=== PATIENT | female | born 1935 | race Caucasian/White ===

== ENCOUNTER 2019-08-26 03:02 | Observation (INO) | payer MEDICARE, BC ==
[2019-08-26] MEDS ORDERED: oxyCODONE/Acetamin 5/325 MG* TAB PO ONE (04:06)
--- NOTE | 2019-08-26 04:12 | ED ---
Adult Trauma - HPI Summary HPI Summary: Pt is an 83 y/o F presenting to the ED brought in by EMS for a fall. She states she was reaching down off of her mattress to get her slippers to go to the bathroom, when she just slid off of the bed and was unable to stop. She landed on her bottom. She notes pain in her low back and heightened anxiety. Denies hip pain. - History of Current Complaint Chief Complaint: EDFall Stated Complaint: PAIN AFTER FALL PER EMS Time Seen by Provider: 08/26/19 03:53 Hx Obtained From: Patient Mechanism of Injury: Fall Ambulatory at the Scene: No Onset/Duration: Started Hours Ago, Still Present Onset of Pain: Immediate Onset Severity: Severe Current Severity: Severe Pain Intensity: 9 Pain Scale Used: 0-10 Numeric Location: Back Aggravating Factor(s): Nothing Alleviating Factor(s): Nothing Associated Signs & Symptoms: Positive: Negative - Allergy/Home Medications Allergies/Adverse Reactions: Allergies Allergy/AdvReac Type Severity Reaction Status Date / Time clarithromycin [From Biaxin] Allergy Unknown Verified 08/26/19 03:25 Reaction Details PMH/Surg Hx/FS Hx/Imm Hx Previously Healthy: Yes Cardiovascular History: Reports: Hx Hypertension Denies: Hx Myocardial Infarction Respiratory History: Denies: Hx Asthma, Hx Chronic Obstructive Pulmonary Disease (COPD) Musculoskeletal History: Reports: Hx Arthritis, Hx Rheumatoid Arthritis, Hx Osteoporosis Sensory History: Reports: Hx Vision Problem Opthamlomology History: Reports: Hx Vision Problem Infectious Disease History: No Infectious Disease History: Denies: Traveled Outside the [place] in Last 30 Days - Family History Known Family History: Negative: Diabetes - Social History Alcohol Use: Rare Hx Substance Use: No Substance Use Type: Reports: None Hx Tobacco Use: No Smoking Status (MU): Never Smoked Tobacco Review of Systems Positive: Myalgia. Negative: Arthralgia Positive: Anxious All Other Systems Reviewed And Are Negative: Yes Physical Exam - Summary Physical Exam Summary: Appearance: Elderly, frail-appearing woman lying on the stretcher in [facility], does not appear to be in pain. Skin: Warm, dry, no obvious rash Eyes: sclera anicteric, no conjunctival pallor ENT: mucous membranes moist, pharynx appears normal. No external signs of head trauma. Neck: Supple, nontender Respiratory: Clear to auscultation, no signs of respiratory distress Cardiovascular: Normal S1, S2. No murmurs. Normal distal pulses in tibial and radial bilaterally. Abdomen: Mild general abd tenderness without peritoneal signs, normal active bowel sounds present Musculoskeletal: Stigmata of arthritis in both hands. Tenderness diffusely in lower lumbar back without coccygeal tenderness. Appears to be moving arms & legs w/o significant difficulty. Neurological: A&Ox3, awake and alert, mentation is normal, speech is fluent and appropriate Psychiatric: affect is normal, does not appear anxious or depressed Triage Information Reviewed: Yes Vital Signs On Initial Exam: Initial Vitals Temp Pulse Resp BP Pulse Ox 98.3 F 74 16 194/91 100 08/26/19 03:10 08/26/19 03:10 08/26/19 03:10 08/26/19 03:10 08/26/19 03:10 Vital Signs Reviewed: Yes Procedures - Sedation Patient Received Moderate/Deep Sedation with Procedure: No Diagnostics - Vital Signs Vital Signs Temp Pulse Resp BP Pulse Ox 08/26/19 03:14 73 194/91 99 08/26/19 03:10 98.3 F 74 16 194/91 100 - Laboratory Result Diagrams: 08/26/19 04:41 08/26/19 04:41 Lab Statement: Any lab studies that have been ordered have been reviewed, and results considered in the medical decision making process. - Radiology L-spine XR Radiology Interpretation Completed By: ED Physician Summary of Radiographic Findings: No acute fracture. Pending official radiology report. Pelvis XR Radiology Interpretation Completed By: ED Physician Summary of Radiographic Findings: No acute fracture. Pending official radiology report. - CT Pelvis CT CT Interpretation Completed By: Radiologist Summary of CT Findings: 1. Old fractures of the right superior and inferior pubic rami and the distal sacrum or sacrococcygeal junction. 2. 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 There is facet arthropathy at L4-L5 with grade 1 anterolisthesis[address] 3[address] Otherwise negative [address] pelvis. No acute fracture. ED physician has reviewed this report. L-spine CT CT Interpretation Completed By: Radiologist Summary of CT Findings: 1. Mild acute compression of L1 with no significant retropulsion. There is slight surrounding induration. 2. 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 There is facet arthropathy at L4-L5 with grade 1 anterolisthesis with moderate secondary spinal stenosis and borderline left neural foraminal stenosis. 3. Early facet arthropathy at several levels with no additional significant spinal or foraminal stenosis. ED physician has reviewed this report. Adult Trauma Course/Dx - Course Course Of Treatment: 83 y[facility] a fall from her mattress to the ground when she was trying to pick pack worker her slipper. Reports back pain and anxiety. Denies hip pain. On exam, pt is an elderly, frail-appearing female lying on the stretcher in no acute distress. She has mild generalized abd pain without peritoneal signs, stigmata of arthritis in her hands, tenderness diffusely across the lower lumbar back without coccygeal tenderness, and she's moving her extremities without significant difficulty. L- spine and pelvis XRs show no acute fracture, pending official radiology report. L-spine CT shows: 1. Mild acute compression of L1 with no significant retropulsion. There is slight surrounding induration. 2. 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 There is facet arthropathy at L4-L5 with grade 1 anterolisthesis with moderate secondary spinal stenosis and borderline left neural foraminal stenosis. 3. Early facet arthropathy at several levels with no additional significant spinal or foraminal stenosis. Pelvis CT shows: 1. Old fractures of the right superior and inferior pubic rami and the distal sacrum or sacrococcygeal junction. 2. 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 There is facet arthropathy at L4-L5 with grade 1 anterolisthesis. 3. Otherwise negative CT pelvis. No acute fracture. Dx of L1 compression fracture. Signout to Dr. Christianson pending hospitalist consult. - Diagnoses Provider Diagnoses: Compression fracture of L1 lumbar vertebra Discharge ED - Sign-Out/Discharge Documenting (check all that apply): Sign-Out Patient Signing out patient TO: Leonid Christianson - Discharge Plan Disposition: ADMITTED TO [facility] - Billing Disposition and Condition Disposition: Admitted to [facility] - Attestation Statements Document Initiated by Scribe: Yes Documenting Scribe: Yenny Mauricio Provider For Whom Leroy is Documenting (Include Credential): Brent Melgar MD. Scribe Attestation: Yenny Conley, [email or web address] for Brent Melgar MD. on 08/26/19 at 2046. Scribe Documentation Reviewed: Yes Provider Attestation: The documentation as recorded by the scribe, Yenny Mauricio accurately reflects the service I personally performed and the decisions made by me, Brent Melgar MD. Status of Scribe Document: Viewed
[2019-08-26 04:51] LABS: ABS Lymphocytes 0.7 10^3/ul (1.0-4.8); ABS Monocytes 0.3 10^3/ul (0-0.8); Eosinophil % 0.1 %; Hematocrit 33 % (35-47); Hemoglobin 11.6 g/dL (12.0-16.0); Lymphocyte % 9.2 %; Mean Corpuscular HGB Conc 35 g/dL (31-36); Mean Corpuscular Hemoglobin 32 pg (27-31); Mean Corpuscular Volume 91 fL (80-97); Mean Platelet Volume 7.2 fL (7.4-10.4); Platelet Count 156 10^3/uL (150-450); Red Blood Count 3.66 10^6 /uL (3.70-4.87); Red Cell Distribution Width 14 % (10-15); White Blood Count 8.1 10^3/uL (3.5-10.8)
[2019-08-26 05:11] LABS: Urine Appearance Clear; Urine Bilirubin Negative (Negative); Urine Blood Negative (Negative); Urine Color Straw; Urine Glucose 1+(50 mg/dL) (Negative); Urine Ketones Negative (Negative); Urine Nitrite Negative (Negative); Urine Protein Negative (Negative); Urine Specific Gravity 1.009 (1.010-1.030); Urine Urobilinogen Negative (Negative)
[2019-08-26 05:22] LABS: Albumin/Globulin Ratio 1.4 (1-3); BUN/Creatinine Ratio 19.7 (8-20); Calcium 9.1 mg/dL (8.6-10.3); EGFR African American 87.9 (>60); EGFR Non-African American 72.7 (>60); Globulin 2.8 g/dL (2-4); Potassium 3.7 mmol/L (3.5-5.0); Total Bilirubin 0.5 mg/dL (0.2-1.0); Total Protein 6.8 g/dL (6.4-8.9)
[2019-08-26] MEDS ORDERED: Ondansetron INJ* 2 MG/ML VIAL IV ONE (06:00)
[2019-08-26] MEDS ORDERED: oxyCODONE TAB* 5 MG TAB PO ONE (06:07)
[2019-08-26] MEDS: Morphine INJ* 2 MG/ML 1 ML SYRINGE (TWO MG - NEW SYRINGE VERSION) IV PRN ×5 (08:24→19:37)
[2019-08-26] MEDS: Polyethylene Glycol 3350* 17 GM PACKET PO SCH ×2 (09:36→21:40)
--- NOTE | 2019-08-26 10:38 | HP ---
CC: Dr. Perez Barrios in [place], [place], phone number is [phone] HISTORY AND PHYSICAL: DATE OF ADMISSION: 08/26/19 TIME OF EVALUATION: 7:03 a.m. PRIMARY CARE PROVIDER: Dr. Perez Barrios CHIEF COMPLAINT: "I fell." HISTORY OF PRESENT ILLNESS: Mrs. Pacheco is an 83-year-old female with a past medical history of rhe umatoid arthritis, hypertension, osteoporosis, who is visiting her family from [place]. The pat ient states that she is sleeping in a pull out couch and it can be a little "tricky" to get up. In t he middle of the night, she needed to go to the bathroom, so she sat up on the edge of the couch and she was trying to find her slippers with her foot, but she slipped from the bed and landed on her bot jesse. She immediately felt severe low back pain and she was brought to the emergency room for further evaluation. She states that prior to this episode, she was feeling in her usual state of health. There is no jesse st pain, palpitations, dizziness, lightheadedness, loss of consciousness, nausea, vomiting, diarrhea. She denies loss of sensation, tingling, or localized weakness. In the emergency room, the patient's workup revealed an L1 compression fracture and in the emergency room, she attempted ambulation with a walker, but was not successful due to severe pain reason why [facility] hospitalist service was called for admission. PAST MEDICAL HISTORY: 1. Rheumatoid arthritis. 2. Hypertension. 3. Osteoporosis. MEDICATION LIST: Not available at this time. Her son will pick it up and bring it to the hospital. FAMILY HISTORY: There is a family history of diabetes. SOCIAL HISTORY: Sporadic alcohol use. No history of tobacco or drug use. The patient lives in [place], [place] and is just visiting. Surrogate decision maker is her son, Margarito Pacheco, phone numb er is [phone]. REVIEW OF SYSTEMS: A 14-point review of systems was performed and all the pertinent negative and pos itive findings are in the HPI. PHYSICAL EXAMINATION GENERAL: The patient is an elderly frail lady, lying in the ED stretcher, in no acute distress, but appears to be very uncomfortable. VITAL SIGNS: Temperature 98.3, heart rate 75, respiratory rate 16, oxygen saturation 96% on room air , blood pressure is 128/61. HEENT: Pupils are equal. Moist mucous membranes. CHEST: Breath sounds bilaterally with no added sounds. CVS: Normal S1, S2. Regular rate and rhythm. ABDOMEN: Soft, nontender, nondistended. Bowel sounds are present. EXTREMITIES: No edema. The patient has rheumatoid arthritis deformities on her hands, but no active inflammation. The patient has no clear stepdown deformity on inspection of her back, but she has te nderness diffusely in her lower back. She can move both lower extremities with power 4/5. Sensation is intact. Her face is symmetric. Speech is clear, although history is a little difficult to obtai n due to her pain and the fact that she received opioids prior to my interview. DIAGNOSTIC STUDIES/LAB DATA: The patient had a CBC that showed WBC of 8.1, hemoglobin of 11.6, philippe tocrit 33, platelets 156 with 87% neutrophils. Chemistry showed a sodium 147, potassium 3.7, chlorid e of 103, bicarb of 27, BUN of 15, creatinine of 0.76, glucose of 157, calcium is 9.1. LFTs are norm al. Urinalysis showed 1+ glucose. Lumbar spine x-ray shows [id number] acute appearing compression fracture of the superior endpla te of the L1 vertebral body with a grade 1 anterior spondylolisthesis at the L4-L5 level. Pelvis x-ray was a limited study, but showed osteopenia and no acute osseous injury. The patient had a CT of the lumbar spine without contrast that showed mild acute compression of L1 wi th no significant retropulsion. There is slight surrounding induration. Bilateral spondylolisthesis of L5 with slight anterolisthesis. There is facet arthropathy at L4-L5 with grade 1 anterolisthesis with moderate secondary spinal stenosis and borderline left neural foraminal stenosis. Early facet arthropathy at several levels with no additional significant spinal or foraminal stenosis. CT of the pelvis showed old fractures of the right superior and inferior pubic rami and distal sacrum or sacrococcygeal junction. No acute fracture. ASSESSMENT AND PLAN: Mrs. Pacheco is an 83-year-old female with a past medical history of hypertensi on, rheumatoid arthritis, osteoporosis, who presented to the emergency room with complaints of low ba ck pain after sustaining a mechanical fall, found to have an L1 compression fracture. 1. L1 compression fracture. CT shows this is a mild fracture with no retropulsion. The patient's n eurological exam is normal. The major issues at this time is pain control. The patient will be admitted as observation to the medical floor and we will do a thoracic spine as w ell as cervical spine x-ray. The patient will be on bedrest for now and she will be seen in consulta tion by Neurosurgery. We will continue pain management and I suspect she will likely need a TLSO bra ce. 2. Rheumatoid arthritis. The patient states that she is on Humira and she was actually due for inje ction today. Her son will bring her medication list, so we can continue her treatment. 3. Hypertension. The patient was hypertensive in the setting of acute pain, but after receiving alison n medication, her blood pressure is already trending down. We will continue to monitor. 4. DVT prophylaxis. The patient has a score of 3 on the DVT prophylaxis Risk Assessment Guide and s he will be started on subcutaneous heparin. 5. Code status is full. We will also obtain records from her primary care provider, Dr. Perez Barrios. TIME SPENT: Approxi mately 50 minutes was spent with the patient and son's interview, medical records review, physical ex amination to complete this admission, more than half of this time was spent [id number] with the pat ient and coordination of care. [id number]/[facility] #: [id number]
[2019-08-26] MEDS ORDERED: Polyethyl Glycol/Propylene Gly OPHTH.SOLN BOTH EYES PRN (11:58)
[2019-08-26] MEDS: oxyCODONE TAB* 5 MG TAB PO PRN ×2 (12:02→21:44)
[2019-08-26] MEDS: CMC:Saliva Substitute (NF) 1 SPRAY BTL MT PRN (12:03)
[2019-08-26] MEDS: PROCHLORPERAZINE INJ 5 MG/ML 2 ML VIAL IV PRN (14:31)
[2019-08-26] MEDS: Heparin VIAL(*) 5000 UNITS/ML VIAL (FIVE THOUSAND) SUBCUT SCH ×2 (14:41→21:39)
[2019-08-26] MEDS: Escitalopram * 5 MG TAB PO SCH (16:14)
[2019-08-26] MEDS: clonazePAM TAB(*) 0.5 MG PO PRN (16:14)
--- NOTE | 2019-08-26 19:27 | CONS ---
CONSULTATION REPORT: DATE OF CONSULT: 08/26/19 HISTORY OF PRESENT ILLNESS: The patient is a very pleasant 83-year-old female with past medical history of rheumatoid arthritis, hypertension, osteoporosis, who was visiting her family from [place]. The patient was reported to have sustained a fall when she was trying to get out of bed. The patient reports it was a pull- out sofa, and when she was trying to find her slippers, she fell on her back. She denies any loss of consciousness. Denies any neck pain. Because of back pain, the patient was brought to the emergency room, and a CT scan of the lumbar spine revealed a superior end-plate fracture of L1. Requested to see the patient by the hospitalist team, who kindly admitted the patient for pain control. The patient at this point denies any weakness, numbness, or tingling of her extremities. She denies any neck pain. She was able to ambulate after the accident. She denies any urinary or GI incontinence. Her perineal sensation is intact. The patient lives in her apartment in a town close to [place]. She was visiting her son who lives here in [place]. The patient was seen on the regular floor. The patient's son is at the bedside. PAST MEDICAL HISTORY: Rheumatoid arthritis, hypertension, osteoporosis. FAMILY HISTORY: Diabetes. SOCIAL HISTORY: Tobacco negative. Alcohol occasionally. Recreational drug use negative. The patient lives in [place], [place]. Surrogate decision maker is her son Margarito Pacheco. PHYSICAL EXAM: On physical examination, the patient is not in acute distress. She is awake, alert, oriented x3. Her pupils are equal and reactive. Cranial nerves II through XII are grossly intact. Motor 4-5/5 in all extremities. No pronator drift. Sensory grossly intact to light touch. Deep tendon reflexes + 1 bilaterally. No clonus, no Babinski. Antunez's negative. The patient has a brace on. She is nontender to palpation of the cervical spine. She has free range of motion of the cervical spine. The patient does have deviation of the fingers consistent with a history of rheumatoid arthritis. DIAGNOSTIC STUDIES/LAB DATA: The patient had an x-ray of her cervical spine that did not reveal any fractures or subluxation. The patient had an x-ray of the thoracic spine that did not reveal any fractures. The patient had a CT scan of her lumbar spine that revealed a superior end-plate fracture of L1 without significant canal compromise, there might be suspicion of mild superior end-plate posterior displacement, although in the axial views it is difficult to confirm. The patient also has a grade 1 spondylolisthesis at L4-5 with vacuum phenomenon and what seems to be pars defect at L5 bilaterally. ASSESSMENT: The patient is a very pleasant 83-year-old female with past medical history of hypertension, rheumatoid arthritis, osteoporosis, who presented to the emergency room with complaints of low back pain after sustaining a mechanical fall and was diagnosed with an L1 superior end-plate fracture. PLAN: The patient at this point is doing quite well. We recommend conservative treatment with brace provided that the patient can tolerate the upright position and upright x-rays did not reveal any significant kyphosis or spinal malalignment. We discussed about different treatment options including surgical intervention, kyphoplasty, and conservative treatment with brace. I think if the upright x-rays did not reveal any new findings, conservative treatment may be the best option for now. The patient should follow up with her primary physician regarding treatment of osteoporosis. Also recommend to obtain a CT scan of the cervical spine to exclude the remote possibility of an occult fracture. Thank you for allowing us to participate in the care of this patient. Please do not hesitate to contact our office in case if you have any further questions or concerns regarding the care of this patient. [id number]/[facility] #: [id number] YASMINE
[2019-08-26] MEDS: Losartan TAB* 25 MG PO SCH (21:39)
[2019-08-26] MEDS: Folic Acid TAB* 1 MG PO SCH (21:39)
[2019-08-27] MEDS: oxyCODONE TAB* 5 MG TAB PO PRN ×4 (02:34→20:26)
[2019-08-27] MEDS: Morphine INJ* 2 MG/ML 1 ML SYRINGE (TWO MG - NEW SYRINGE VERSION) IV PRN (05:40)
[2019-08-27] MEDS: Heparin VIAL(*) 5000 UNITS/ML VIAL (FIVE THOUSAND) SUBCUT SCH ×3 (05:41→20:25)
[2019-08-27] MEDS: Losartan TAB* 25 MG PO SCH (08:53)
[2019-08-27] MEDS: PILOCARPINE 5 MG PO SCH (08:53)
[2019-08-27] MEDS: Polyethylene Glycol 3350* 17 GM PACKET PO SCH ×2 (08:53→20:25)
[2019-08-27] MEDS: Escitalopram * 5 MG TAB PO SCH (08:53)
[2019-08-27] MEDS: clonazePAM TAB(*) 0.5 MG PO PRN ×2 (08:54→20:26)
[2019-08-27] MEDS: Multivitamins/Minerals TAB PO SCH (08:54)
[2019-08-27] MEDS: Ascorbic Acid TAB* 500 MG PO SCH (08:54)
[2019-08-27] MEDS: Folic Acid TAB* 1 MG PO SCH ×2 (08:54→20:26)
[2019-08-27] MEDS: Acetaminophen TAB* 325 MG PO PRN ×2 (08:54→14:31)
[2019-08-27] MEDS: amLODIPine TAB* 5 MG PO SCH (08:54)
[2019-08-27] MEDS: CMCS:Oral Rinse (Biotene)(NF) 237 ML or 473 ML ORAL RINSE BTL MT SCH (08:57)
[2019-08-27] MEDS ORDERED: Losartan TAB* 25 MG PO SCH (09:00)
[2019-08-27] MEDS: PROCHLORPERAZINE INJ 5 MG/ML 2 ML VIAL IV PRN (09:03)
[2019-08-27] MEDS: Red Yeast Rice [Red Yeast Rice] 1,200 MG PO SCH ×2 (14:21→23:47)
--- NOTE | 2019-08-27 18:04 | PN ---
Subjective Date of Service: 08/27/19 Interval History: HOSPITALIST PROGRESS NOTE Patient seen and examined at bedside. Care reviewed and d/w Vicky Goodman RN. She feels improved today. Initial TLSO brace was too large, but now she has an appropriate sized one and feels much more comfortable. Pain is better controlled and she was able to ambulate to the bathroom. Had some urinary retention after IV Morphine yesterday, but now voiding without issues. Family History: Unchanged from Admission Social History: Unchanged from Admission Past Medical History: Unchanged from Admission Objective Active Medications: Acetaminophen (Tylenol Tab*) 650 mg PO Q4H PRN PRN Reason: MILD PAIN or TEMP > 100.4 Last Admin: 08/27/19 14:31 Dose: 650 mg Amlodipine Besylate (Norvasc Tab*) 5 mg PO DAILY [facility] Last Admin: 08/27/19 08:54 Dose: 5 mg Ascorbic Acid (Vitamin C Tab*) 1,000 mg PO DAILY [facility] Last Admin: 08/27/19 08:54 Dose: 1,000 mg Clonazepam (Klonopin Tab(*)) 0.5 mg PO BID PRN PRN Reason: ANXIETY Last Admin: 08/27/19 08:54 Dose: 0.5 mg Escitalopram Oxalate (Lexapro *) 5 mg PO DAILY [facility]; Protocol Last Admin: 08/27/19 08:53 Dose: 5 mg Folic Acid (Folvite Tab*) 1 mg PO BID [facility] Last Admin: 08/27/19 08:54 Dose: 1 mg Heparin Sodium (Porcine) (Heparin Vial(*)) 5,000 units SUBCUT Q8HR [facility] Last Admin: 08/27/19 14:32 Dose: 5,000 units Losartan Potassium (Cozaar Tab*) 100 mg PO DAILY [facility] Last Admin: 08/27/19 08:53 Dose: 100 mg Morphine Sulfate (Morphine Inj (Syringe))*) 1 mg IV Q1H PRN PRN Reason: SEVERE PAIN Last Admin: 08/27/19 05:40 Dose: 1 mg Multi-Ingredient Mouthwash/Gargle (Biotene Dry Mouth Oral Rinse(Nf)) 15 ml MT DAILY [facility] Last Admin: 08/27/19 08:57 Dose: 15 ml Multivitamins/Minerals (Theragran/Minerals Tab*) 1 tab PO DAILY [facility] Last Admin: 08/27/19 08:54 Dose: 1 tab Red Yeast Rice [Red (Yeast Rice] 1,200 Mg) 1,200 mg PO BID [facility] Last Admin: 08/27/19 14:21 Dose: Not Given Oxycodone HCl (Roxycodone Tab*) 5 mg PO Q4H PRN PRN Reason: PAIN - MODERATE Last Admin: 08/27/19 14:31 Dose: 5 mg Pilocarpine HCl (Pilocarpine Tab (Nf)) 10 mg PO DAILY [facility]; Protocol Last Admin: 08/27/19 08:53 Dose: 10 mg Polyethyl Glycol/Propylene Glycol (Lubricant Eye Drops) 1 drop BOTH EYES DAILY PRN PRN Reason: DRY EYE Polyethylene Glycol/Electrolytes (Miralax*) 17 gm PO 0800,2100 [facility] Last Admin: 08/27/19 08:53 Dose: 17 gm Prochlorperazine Edisylate (Compazine Inj*) 5 mg IV Q6H PRN PRN Reason: NAUSEA/VOMITING Last Admin: 08/27/19 09:03 Dose: 5 mg Saliva Substitute (Biotene Moisturizing Mouth (Nf)) 1 spray MT Q3H PRN; Protocol PRN Reason: dry mouth Last Admin: 08/26/19 12:03 Dose: 1 spray Vital Signs - 8 hr 08/27/19 08/27/19 08/27/19 11:15 11:20 14:31 Temperature 97.6 F Pulse Rate 84 Respiratory 13 13 15 Rate Blood Pressure 162/62 (mmHg) O2 Sat by Pulse 100 Oximetry 08/27/19 08/27/19 15:50 16:32 Temperature 98.1 F Pulse Rate 72 Respiratory 20 15 Rate Blood Pressure 165/75 (mmHg) O2 Sat by Pulse 98 Oximetry Oxygen Devices in Use Now: None Appearance: Pleasant elderly lady sitting up in bed in NAD Eyes: No Scleral Icterus Ears/Nose/Mouth/Throat: Mucous Membranes Moist Neck: Trachea Midline Respiratory: Symmetrical Chest Expansion and Respiratory Effort, Clear to Auscultation Cardiovascular: RRR - Normal S1 and S2 Abdominal: NL Sounds; No Tenderness; No Distention Neurological: Alert and Oriented x 3, NL Muscle Strength and Tone, - - Sensation intact Result Diagrams: 08/26/19 04:41 08/26/19 04:41 Assess/Plan/Problems-Billing Assessment: Mrs Pacheco is an 83yo F with PMH of Rheumatoid arthritis, osteoporosis, HTN, who presented to ED with c/o back after sustaining a fall at home, found to have L1 compression fracture. - Patient Problems (1) Compression fracture of L1 lumbar vertebra Comment: - Neurosurgery input much appreciated. - Will continue pain management, TLSO brace when out of bed, and PT. - No indication for surgical procedures at this time. (2) HTN (hypertension) Comment: - Continue Amlodipine and Losartan. (3) DVT prophylaxis Comment: - SQ heparin. (4) Full code status Status and Disposition: OBV.
--- NOTE | 2019-08-27 18:22 | PN ---
Progress Note - Progress Note Date of Service: 08/27/19 Note: No events ON. Tolerates brace well. Pain is significantly better. Ambulates to bathroom, Voids, Tolerates Po well. AAOx3 REGINA, CN II-XII grossly intact Motor 4-5/5 all extremities Sensory grossly intact to light touch XR reveals mild kyphosis (17') Discussed in extend with patient and her son (over the phone) regarding imaging findings and possible options including surgical intervention. At this point we agreed to continue with conservative treatment with bracing. Patient and her son understand the possibility of progression of kyphosis, increased pain and possible neurological deficits. DC planning after eval by PT. Will need follow up with serial imaging. Patient's son would like to transfer the patient to [place]. Follow up with spine surgeon close to her residence in 2 weeks. Will be available if needed. Venus Wallace MD
[2019-08-27] MEDS ORDERED: hydrALAZINE IV* 20 MG/ML VIAL IV SLOW PU PRN (20:07)
[2019-08-28] MEDS: oxyCODONE TAB* 5 MG TAB PO PRN ×3 (01:10→14:06)
[2019-08-28] MEDS: Acetaminophen TAB* 325 MG PO PRN (01:10)
[2019-08-28] MEDS: Heparin VIAL(*) 5000 UNITS/ML VIAL (FIVE THOUSAND) SUBCUT SCH ×2 (06:26→14:07)
[2019-08-28] MEDS: Morphine INJ* 2 MG/ML 1 ML SYRINGE (TWO MG - NEW SYRINGE VERSION) IV PRN (07:39)
[2019-08-28] MEDS: CMC:Saliva Substitute (NF) 1 SPRAY BTL MT PRN (07:44)
[2019-08-28] MEDS: Multivitamins/Minerals TAB PO SCH (07:49)
[2019-08-28] MEDS: Folic Acid TAB* 1 MG PO SCH (07:49)
[2019-08-28] MEDS: PILOCARPINE 5 MG PO SCH (07:49)
[2019-08-28] MEDS: Losartan TAB* 25 MG PO SCH (07:49)
[2019-08-28] MEDS: Polyethylene Glycol 3350* 17 GM PACKET PO SCH (07:49)
[2019-08-28] MEDS: Escitalopram * 5 MG TAB PO SCH (07:49)
[2019-08-28] MEDS: Ascorbic Acid TAB* 500 MG PO SCH (07:49)
[2019-08-28] MEDS: CMCS:Oral Rinse (Biotene)(NF) 237 ML or 473 ML ORAL RINSE BTL MT SCH (07:50)
[2019-08-28] MEDS: Red Yeast Rice [Red Yeast Rice] 1,200 MG PO SCH (07:50)
[2019-08-28] MEDS: amLODIPine TAB* 5 MG PO SCH (07:50)
[2019-08-28] MEDS: clonazePAM TAB(*) 0.5 MG PO PRN (08:00)
[2019-08-28 13:17] VITALS: BP 154/58
--- NOTE | 2019-08-29 10:54 | DS ---
CC: Dr. Perez Barrios; Dr. Wallace * DISCHARGE SUMMARY: DATE OF ADMISSION: 08/26/19 DATE OF DISCHARGE: 08/28/19 PRIMARY CARE PROVIDER: Dr. Perez Barrios in [place], [place], phone number is [phone]. DISCHARGE DIAGNOSIS: L1 compression fracture. SECONDARY DIAGNOSES: 1. Rheumatoid arthritis. 2. Osteoporosis. 3. Hypertension. MEDICATION LIST: 1. Acetaminophen 650 mg p.o. q.4 hours p.r.n. mild pain or fever. 2. Humira 20 mg subcutaneously weekly. 3. Amlodipine 5 mg p.o. daily. 4. Vitamin C 1000 mg p.o. daily. 5. Cequa 1 drop to both eyes b.i.d. 6. Clonazepam 0.5 mg to 1 mg p.o. b.i.d. as needed for anxiety. 7. Clotrimazole 10 mg p.o. daily as needed for thrush. 8. Diclofenac sodium 3% topical daily as needed for pain. 9. Lomotil 1 to 2 tablets p.o. daily. 10. Lexapro 5 mg p.o. daily. 11. Folic acid 1 mg p.o. b.i.d. 12. Glucosamine 1000 mg p.o. daily. 13. Inveltys 1 drop to right eye b.i.d. 14. Losartan 100 mg p.o. daily. 15. Methotrexate 2.5 mg p.o. weekly. 16. Multivitamin 1 tablet p.o. daily. 17. Biotene Dry Mouth rinse daily. 18. Pilocarpine 10 mg p.o. daily. 19. Artificial tears 1 drop to both eyes daily as needed for dry eye. 20. Red yeast rice 1200 mg p.o. b.i.d. 21. Tramadol 50 mg p.o. b.i.d. as needed for moderate pain. 22. Turmeric 500 mg p.o. daily. New medication: 1. Oxycodone 5 mg p.o. q.6 hours p.r.n. [id number] pain, MDD 4 tablets , dispensed 10 tablets, no refills. HOSPITAL COURSE: Ms. Pacheco is an 83-year-old female with a past medical history as stated above that presented to the emergency room after sustaining a fall from bed. She is visiting from [place] and she was sleeping in a pull out couch. She states she sat up, trying to go to the bathroom, and while searching for her slippers with her feet, she slipped down and landed on her buttocks and immediately experienced severe back pain. For more details about her presentation, I refer you to her history and physical. In the emergency room, the patient had a lumbar spine x-ray that showed mild to moderate acute appearing compression fracture on the superior endplate of the L1 vertebral body. CT of the lumbar spine without contrast showed mild acute compression of L1 with no significant retropulsion. The patient still had significant back pain in the emergency room and the hospitalist service was contacted for admission and further management. The patient received morphine and oxycodone with improvement of her pain. She was seen in consultation by Neurosurgery (Dr. Wallace). His impression was the patient had an L1 superior endplate fracture secondary to mechanical fall. His recommendation was for conservative treatment with a brace provided that the patient can tolerate the upright position and upright x-rays did not reveal any significant kyphosis or spinal malalignment. Arrangements were made and the patient had a TLSO brace placed. To complete her workup, the patient also had cervical spine x-ray that showed osteopenia, osteoarthritis, but no acute fracture; a thoracic spine x-ray with similar findings and the described acute fracture and a CT of the cervical spine with no acute cervical spine fracture. An upright thoracolumbar spine x-ray with her brace on showed 25% to 50% compression of L1 with progression since her initial x-ray from 08/26/19. At that point, she was seen by Dr. Wallace again, and he had a lengthy discussion with the patient and her son regarding her x-ray findings and possible therapeutic options including surgical intervention. After discussing risks, benefits, and alternatives, decision was made to continue conservative treatment with bracing and pain management. The patient and her son are aware of the possibility of progression of kyphosis, increased pain, and possible neurological deficits. His recommendation was for neurosurgical followup with imaging in 2 weeks and that can be done with him if the patient stays in [place] or she can be referred to see a neurosurgeon in [place] when she returns home. The patient did well with physical therapy. She was able to ambulate independently and she required a rolling walker but was able to ambulate 150 feet. She also did well with stairs and able to ascend and descend for stairs with one way up, so it was felt that she did not have any skilled PT services at this point. Initially, the patient had some urinary retention with morphine and required straight cath, but this is also resolved. The patient is medically stable to be discharged home today. PHYSICAL EXAMINATION: Vital Signs: Temperature 98.2, heart rate 75, respiratory rate is 16, oxygen saturation is 100% on room air, blood pressure is 154/58. General: The patient is pleasant, petite elderly lady, sitting up in bed, in no acute distress. CVS: Normal S1, S2. Regular rate and rhythm. Chest: Breath sounds bilaterally with no added sounds. Abdomen: Soft, bowel sounds present. Extremities: No edema. Neuro: She is alert and oriented x3. Power is 5/5 in all 4 extremities. Sensation is intact. DIET: Regular diet. ACTIVITIES: As tolerated. The patient was advised to wear her TLSO brace at all times while out of bed. DISPOSITION: To home. STATUS WHILE IN THE HOSPITAL: Observation. CONDITION AT THE TIME OF DISCHARGE: Fair. Please keep in mind, this is a summarized version of this patient's hospital stay. If you need more information, please feel free to call me at [phone] or please obtain full medical records. TIME SPENT: Approximately 45 minutes was spent to complete this discharge. [id number]/[id number] #: [id number] YASMINE
== END 2019-08-28 17:05 | disposition home or self-care (01) ==
LOC: ED 03:02 → MED 07:03
PROVIDERS: ADMIT Internal Medicine; ATTEND Internal Medicine
DX: S32.019A Unspecified fracture of first lumbar vertebra, initial encounter for closed fracture (principal); W06.XXXA Fall from bed, initial encounter; Y92.9 Unspecified place or not applicable; M06.9 Rheumatoid arthritis, unspecified; M81.0 Age-related osteoporosis without current pathological fracture; I10 Essential (primary) hypertension; Z79.899 Other long term (current) drug therapy; M54.5 Low back pain; R94.31 Abnormal electrocardiogram [ECG] [EKG]
CPT/HCPCS: 36415; 72050; 72070; 72080; 72100; 72125; 72131; 72170; 72192; 80053; 81003; 85025; 93005; 96372; 96374; 96375; 96376; 99285; A9270-GY; G0378; J0360; J0780; J1644; J2270; J2405